=== PATIENT | female | born 1975 | race Caucasian/White ===

== ENCOUNTER 2018-11-17 08:41 | Emergency (ER) | payer OTHER ==
[~2018-11-17] VITALS: Ht 162.6 cm; Wt 54.4 kg
[~2018-11-17 08:41] MED LIST: FIORICET 50-321 EACH PO; IRON240 MG PO; MULTI VITAMIN1 EACH PO; NORCO 5-325 TA1 EACH PO; PERCOCET 5-3251 EACH PO; PRENATAL 1 PLU1 EACH PO; TRAMADOL 50 MG50 MG PO
[2018-11-17] MEDS ORDERED: NORCO 7.5-3251 EACH PO (08:53)
[2018-11-17] MEDS ORDERED: NORTRIPTYLINE H25 M3 PO (08:53)
[2018-11-17] MEDS ORDERED: PROVERA5 MG PO (08:54)
[2018-11-17] MEDS ORDERED: XANAX 0.5 MG0.5 MG PO (08:54)
[2018-11-17] MEDS ORDERED: NORCO 5-325 TA1 EAC1 PO (10:19)
[2018-11-17] MEDS ORDERED: PENICILLIN VK500 MG PO (10:19)
[2018-11-17] MEDS ORDERED: IBUPROFEN 800800 MG PO (10:19)
[2018-11-17 10:26] VITALS: BP 138/97
== END 2018-11-17 10:27 | disposition home or self-care (01) ==
LOC: M.ERS 08:41
DX: S02.5XXA Fracture of tooth (traumatic), initial encounter for closed fracture (principal); K02.9 Dental caries, unspecified; G43.909 Migraine, unspecified, not intractable, without status migrainosus; Z90.49 Acquired absence of other specified parts of digestive tract; Z88.2 Allergy status to sulfonamides; Z88.1 Allergy status to other antibiotic agents; Z88.8 Allergy status to other drugs, medicaments and biological substances; X58.XXXA Exposure to other specified factors, initial encounter; Y93.89 Activity, other specified; Y92.89 Other specified places as the place of occurrence of the external cause; Y99.8 Other external cause status